=== PATIENT | male | born 1965 | race Caucasian/White ===

== ENCOUNTER 2023-04-14 07:32 | Outpatient (OUT) | payer OTHER, SELFPAY ==
[2023-04-14 08:13] LABS: Alanine Aminotransferase 35 U/L (16-63); Albumin Level 3.8 g/dL (3.4-5.0); Alkaline Phosphatase 55 U/L (46-116); Anion Gap 12.6; Aspartate Amino Transferase 22 U/L (15-37); BUN Creatinine Ratio 18.6; Bilirubin Total 0.5 mg/dL (0.2-1.0); Calcium 8.4 mg/dL (8.5-10.1); Carbon Dioxide 26.6 mmol/L (21.0-32.0); Chloride 102 mmol/L (98-107); Chol HDL Ratio 3.7; Cholesterol 221 mg/dL (<=200); Estimated GFR (African America >60 (>=60); Estimated GFR (Non-African Ame >60 (>=60); Globulin 3.7 g/dL; Glucose 105 mg/dL (74-106); HDL Cholesterol 59 mg/dL (40-60); Potassium 4.2 mmol/L (3.5-5.1); Sodium 137 mmol/L (136-145); Total Protein 7.5 g/dL (6.4-8.2); Triglycerides 83 mg/dL (<=150); VLDL CHOLESTEROL 16.6 mg/dL
== END 2023-04-14 07:33 | disposition home or self-care (01) ==
PROVIDERS: PCP Family Medicine; Visit Provider Family Medicine
DX: I12.9 Hypertensive chronic kidney disease with stage 1 through stage 4 chronic kidney disease, or unspecified chronic kidney disease (principal); Z13.220 Encounter for screening for lipoid disorders; R73.03 Prediabetes
CPT/HCPCS: 36415; 80053; 80061

== ENCOUNTER 2025-03-26 06:47 | Emergency (ER) | payer OTHER, SELFPAY ==
--- OUTSIDE RECORDS SUMMARY | 2024-06-12 09:57 | XMS_ITS ---
Author Name Auto Generated Organization OHIP Care Team Providers Care Qa Tester Name Role Phone ORIANA TEIXEIRA Attending Unavailable PROBLEMS No Problem Records Found PROCEDURES No Procedure Records Found RESULTS LIPID PANEL, STANDARD Collected: 2023 10:43 AM Status: F Source: [employer] DIAGNOSTICS Order Comment: FASTING:UNKNO WN FASTING: UNKNOWN TYPE CODE TESTS RESULT OUT OF RANGE REFERENCE UNITS LAB [id number] CHOLESTEROL, TOTAL 216 High <200 mg/dL LAB [id number] HDL CHOLESTEROL 56 Normal > OR = 40 mg/dL LAB [id number] TRIGLYCERIDES 105 Normal <150 mg/dL LAB [id number] LDL-CHOLESTEROL 138 High mg/dL (calc) Result Comment: Reference ra nge: <100 Desirable range <100 mg/dL for primary prevention; <70 mg/dL for patients with CHD or diabetic patients with > or = 2 CHD risk factors. LDL-C is now calculated using the Kenny-Fallon calculation, which is a validated novel method providing better accuracy than the Friedewald equation in the estimation of LDL-C. Kenny GAY et al. JUD. 2013;310(19): 1697-6873 (http://education.Filtr8.com/faq/RND451) LAB [id number] CHOL/HDLC RATIO 3.9 Normal <5.0 (calc) LAB [id number] NON HDL CHOLESTEROL 160 High <130 mg/dL (calc) Result Comment: For patients with diabetes plus 1 major ASCVD risk factor, treating to a non-HDL-C goal of <100 mg/dL (LDL-C of <70 mg/dL) is considered a therapeutic option. Performed By: #### [id number], [id number] #### [facility] [address], [address] [place] [address] Ticket Speculator: Gopal Tolbert MD COMPREHENSIVE METABOLIC PANEL Collected : 06/10/2024 10:43 AM Status: F Source: [employer] DIAGNOSTICS TYPE CODE TESTS RESULT OUT OF RANGE REFERENCE UNITS LAB [id number] GLUCOSE 99 Normal 65-99 mg/dL Result Comment: Fasting reference interval LAB [id number] UREA NITROGEN (BUN) 16 Normal 7-25 mg/dL LAB [id number] CREATININE 1.13 Normal 0.70-1.30 mg/dL LAB [id number] EGFR 76 Normal > OR = 60 mL/min/1 .73m2 LAB [id number] BUN/CREATININE RATIO SEE NOTE: 6- (calc) Result Comment: Not Reported : BUN and Creatinine are within reference range. LAB [id number] SODIUM 140 Normal 135-146 mmol/L LAB [id number] POTASSIUM 4.0 Normal 3.5-5.3 mmol/L LAB [id number] CHLORIDE 104 Normal 98-110 mmol/L LAB [id number] CARBON DIOXIDE 28 Normal 20-32 mmol/L LAB [id number] CALCIUM 8.7 Normal 8.6-10.3 mg/dL LAB [id number] PROTEIN, TOTAL 6.8 Normal 6.1-8.1 g/dL LAB [id number] ALBUMIN 4.4 Normal 3.6-5.1 g/dL LAB [id number] GLOBULIN 2.4 Normal 1.9-3.7 g/dL (calc) LAB [id number] ALBUMIN/GLOBUL IN RATIO 1.8 Normal 1.0-2.5 (calc) LAB [id number] BILIRUBIN, TOTAL 0.6 Normal 0.2-1.2 mg/dL LAB [id number] ALKALINE PHOSPHATASE 55 Normal 35-144 U/L LAB [id number] AST 21 Normal 10-35 U/L LAB [id number] ALT 19 Normal 9-46 U/L Performed By: #### [id number], 76 00 #### [facility] [address] [facility], [address] [place] [address] Ticket Speculator: Gopal Tolbert MD ALLERGIES No Allergies Records Found ENCOUNTERS ADMIT/DISCHARGE ACCOUNT NUMBER ADMITTING ENCOUNTER CLASS LOCATION SOURCE 06/12/2024/ 4 [id number] Ambulatory Building:[facility] [id number] EPIC PAYERS ENCOUNTER GUARANTOR PAYER SUBSCRIBER SOURCE 06/12/2024 KELSEY LAKHANI: [id number] [place] [address]Vub: (HP) (WP) Primary Insurance:[facility] Number: [id number] Date:2020 KELSEY LAKHANI: [id number] [place] [address] [facility] EPIC
[2025-03-26 06:52] VITALS: BP 148/100; PULSE 70; TEMP 36.8; O2SAT 97; BMI 32.6
--- OUTSIDE RECORDS SUMMARY | 2025-03-26 06:54 | XMS_ITS | Encounter Summary ---
Author Organization [facility] Address [address] [place] [address] Care Team Providers Care Product Support Representative Name Role Phone Pepito Dominguez MD Primary Care Provider Reason for Visit * Reason Comments Med Refill Encounter Details Date Type Department Care Team ([facility] Contact Info) Description 03/13/2025 Refill [facility] [place] [address] Family Medicine [address] [address] Pepito Dominguez MD 112 [facility] 100 [place] [address] (Fax) Essential hypertension Social History Tobacco Use Types Packs/Day Years Used Date Smoking Tobacco: Never Smokeless Tobacco: Never Alcohol Use Standard Drinks/Week Comments Not Currently 0 (1 standard drink = 0.6 oz pure alcohol) Caffeine intake: 3-4 cups per day Education Answer Date Recorded What is the highest level of school you have completed or the highest degree you have received? 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
--- OUTSIDE RECORDS SUMMARY | 2025-03-26 06:54 | XMS_ITS | Clinical Summary ---
Author Organization [facility] Healthcare Address [address] [place] [address] Care Team Providers Care Explosive Ordnance Specialist Name Role Phone Pepito Dominguez MD Primary Care Provider Allergies No known active allergies Medications losartan (Cozaar) 100 MG tabletIndications :Essential hypertension Take 1 tablet (100 mg) by mouth Daily 30 tablet 5 Active levETIRAcetam (Keppra) 500 MG tabletIndications :Tonic clonic epilepsy (HCC) Take 1 tablet (500 mg) by mouth in the morning and 1 tablet (500 mg) before bedtime. 60 tablet 5 Active Descovy 200-25 MG tablet Take 1 tablet by mouth Daily 5 Active Active Problems Problem Noted Date Diagnosed Date Stage 2 chronic kidney disease 06/12/2024 Non morbid obesity due to excess calories 2022 Benign prostatic hyperplasia without lower urinary tract symptoms 01/31/2023 Erectile dysfunction 01/31/2023 Essential hypertension 01/31/2023 Generalized anxiety disorder 01/31/2023 Heart murmur 01/31/2023 Hormone imbalance 01/31/2023 Hypertensive nephropathy 01/31/2023 Low testosterone level in male 01/31/2023 Microalbuminuria 01/31/2023 Osteoarthritis of right knee 01/31/2023 Pre-diabetes 01/31/2023 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 Resolved Problems Problem Noted Date Diagnosed Date Resolved Date Overweight (BMI 25.0-29.9) 01/31/2023 1 07/22/2022 Morbid obesity 10/09/2018 12/07/2023 Encounters Date Type Department Care Team Description 03/13/2025 Refill [facility] [address] [place] [address] Pepito Dominguez MD Essential hypertension 02/13/2025 Telephone [facility] [address] [place] [address] Pepito Dominguez MD 02/04/2025 Telephone [facility] [address] [place] [address] Alberta Mendoza, FRAN Care Coordination from Last 3 Months Immunizations Immunization Administration Dates Next Due Influenza, High Dose Seasona l, Preservative Free 04/17/2017 Influenza, injectable, MDCK, preservative free, quadrivalent 04/12/2022 Influenza, injectable, quadr ivalent, preservative free 06/10/2023,03/26/2021,06/13/2018,2016,04/19/2016,03/16/2015 Influenza, seasonal, injectable 05/12/2024 Moderna Bivalent Booster Vaccination 04/12/2022 Moderna SARS-CoV-2 Booster Vaccination 05/12/2024 Pfizer Purple Cap SARS-CoV-2 Vaccination 09/29/2020,09/07/2020 Zoster, Recombinant 06/15/2021,04/03/2021 Family History Medical History Relation Name Comments Cancer Father Cancer Mother Hypertension Mother Autism Son 1 son Relation Name Status Comments Brother 1 brother Daughter Alive 2 daughters Father Alive Mother Alive Sister 2 sisters Son Alive 2 sons Social History Tobacco Use Types Packs/Day Years Used Date Smoking Tobacco: Never Smokeless Tobacco: Never Tobacco Cessation:Counseling Given: Yes Alcohol Use Standard Drinks/Week Comments Not Currently [...] Industry Job Start Date Job End Date 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, 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 [employer] Not on file Not on file Not on f ile Last Filed Vital Signs Vital Sign Reading Time Taken Comments Blood Pressure 124/78 12/19/2023 10:07 AM EDT Pulse 76 12/19/2023 10:07 AM EDT Temperature - - Respiratory Rate - - Oxygen Saturation 97% 12/19/2023 10:07 AM EDT Inhaled Oxygen Concentration - - Weight 102 kg (225 lb) 12/19/2023 10:07 AM EDT Height 175.3 cm (5' 9 ) 12/19/2023 10:07 AM EDT Body Mass Index 33.23 12/19/2023 10:07 AM EDT Plan of Treatment Health Maintenance Due Date Last Done Comments CT Colonography 1966 FIT-DNA 1966 FIT 1966 FOBT 1965 Sigmoidoscopy 1966 Influenza Vaccine (#1) 2025 4, 06/10/2023, 04/12/2022, Additional history exists Colonoscopy 12/14/2028 12/14/2018 Colorectal Cancer Screening 12/14/2028 Procedures Procedure Name Priority Date/Time Associated Diagnosis Comments COLONOSCOPY Routine 12/14/2018 12:00 PM EDT Morbid (severe) obesity due to excess calories ([facility]) Encounter for screening for malignant neoplasm of colon Other specified counseling Encounter for general adult medical examination without abnormal findings from Last 3 Months or Most Recently Relevant to Health Maintenance Results * Colonoscopy (12/14/2018 12:00 PM EDT) Anatomical Region Laterality Modality Endoscopy 12/14/2018 12:0 0 PM EDT Narrative 12/14/2018 12:00 PM EDT PERFORMED AT [facility] LOCATION:[id number] Unremarkable save for diverticulosis coli more pronounced in the left colon than the right. Procedure Note CONVERSION, GENERIC - 11/09/2022 PERFORMED AT [facility] LOCATION:[id number] Unremarkable save for diverticulosis coli more pronounced in the leftcolon than the right. Pepito Dominguez MD ENDOSCOPY PROCEDURE ORDERABL ES Final Result from Last 3 Months or Most Recently Relevant to Health Maintenance Insurance [facility] Care Teams Explosive Ordnance Specialist Relationship Specialty Start Date End Date Pepito Dominguez MD [address] [address] PCP - General Family Medicine 11/01/22
--- NOTE | 2025-03-26 07:02 | XR_ITS ---
The [address] [address] Patient Name: KELSEY STRAUSS MRN: [id number] date: 1965 Sex: M Assigned Patient Location: ER Current Patient Location: ER Accession/Order Number: [id number] Exam Date: 03/26/2025 07:10 Report Date: 03/26/2025 08:07 At the request of: NICHOL MICHEL MD Procedure: XR elbow RT 2V CLINICAL HISTORY: fell and pain just a couple inches above elbow RIGHT SHOULDER - 2 views COMPARISON: None AP and Y views were obtained. There is no evidence of fracture or dislocation. There is minimal degenerative change at the acromioclavicular joint. There are no significant soft tissue abnormalities. XR/XR humerus RT IMPRESSION: NO ACUTE BONY INJURY. RIGHT HUMERUS - 2 views COMPARISON: None AP and transthoracic views were obtained. There is a comminuted fracture at the distal humeral shaft. There is slight apex lateral angulation. The butterfly fragment shows slight medial displacement. There is no additional fracture or dislocation. There are no significant soft tissue abnormalities. IMPRESSION: DISTAL HUMERUS FRACTURE RIGHT ELBOW - 2 views COMPARISON: None Attempted AP and lateral views were obtained. The above described fracture of the distal humerus is again seen. This extends to the metadiaphysis above the medial humeral condyle. The fracture is comminuted with a displaced butterfly fragment. There is also some apex anterior lateral angulation. There is no fracture or dislocation at the elbow. There is no elbow effusion. IMPRESSION: DISTAL HUMERUS FRACTURE. Impression dictated by: Linette Barnes M.D. 03/26/2025 8:07 AM Dictation Location: [place] [address] Electronically authenticated by: [id number] Y Date: 03/26/2025 08:07
[2025-03-26 07:04] VITALS: PULSE 70
--- NOTE | 2025-03-26 07:05 | XR_ITS ---
The [address] [address] Patient Name: KELSEY STRAUSS MRN: [id number] date: 1965 Sex: M Assigned Patient Location: ER Current Patient Location: ER Accession/Order Number: [id number] Exam Date: 03/26/2025 07:10 Report Date: 03/26/2025 08:07 At the request of: NICHOL MICHEL MD Procedure: XR elbow RT 2V CLINICAL HISTORY: fell and pain just a couple inches above elbow RIGHT SHOULDER - 2 views COMPARISON: None AP and Y views were obtained. There is no evidence of fracture or dislocation. There is minimal degenerative change at the acromioclavicular joint. There are no significant soft tissue abnormalities. XR/XR shoulder RT min 2V IMPRESSION: NO ACUTE BONY INJURY. RIGHT HUMERUS - 2 views COMPARISON: None AP and transthoracic views were obtained. There is a comminuted fracture at the distal humeral shaft. There is slight apex lateral angulation. The butterfly fragment shows slight medial displacement. There is no additional fracture or dislocation. There are no significant soft tissue abnormalities. IMPRESSION: DISTAL HUMERUS FRACTURE RIGHT ELBOW - 2 views COMPARISON: None Attempted AP and lateral views were obtained. The above described fracture of the distal humerus is again seen. This extends to the metadiaphysis above the medial humeral condyle. The fracture is comminuted with a displaced butterfly fragment. There is also some apex anterior lateral angulation. There is no fracture or dislocation at the elbow. There is no elbow effusion. IMPRESSION: DISTAL HUMERUS FRACTURE. Impression dictated by: Linette Barnes M.D. 03/26/2025 8:07 AM Dictation Location: [place] [address] Electronically authenticated by: [id number] Y Date: 03/26/2025 08:07
--- NOTE | 2025-03-26 07:05 | XR_ITS ---
The [address] [address] Patient Name: KELSEY STRAUSS MRN: [id number] date: 1965 Sex: M Assigned Patient Location: ER Current Patient Location: ER Accession/Order Number: [id number] Exam Date: 03/26/2025 07:10 Report Date: 03/26/2025 08:07 At the request of: NICHOL MICHEL MD Procedure: XR elbow RT 2V CLINICAL HISTORY: fell and pain just a couple inches above elbow RIGHT SHOULDER - 2 views COMPARISON: None AP and Y views were obtained. There is no evidence of fracture or dislocation. There is minimal degenerative change at the acromioclavicular joint. There are no significant soft tissue abnormalities. XR/XR elbow RT 2V IMPRESSION: NO ACUTE BONY INJURY. RIGHT HUMERUS - 2 views COMPARISON: None AP and transthoracic views were obtained. There is a comminuted fracture at the distal humeral shaft. There is slight apex lateral angulation. The butterfly fragment shows slight medial displacement. There is no additional fracture or dislocation. There are no significant soft tissue abnormalities. IMPRESSION: DISTAL HUMERUS FRACTURE RIGHT ELBOW - 2 views COMPARISON: None Attempted AP and lateral views were obtained. The above described fracture of the distal humerus is again seen. This extends to the metadiaphysis above the medial humeral condyle. The fracture is comminuted with a displaced butterfly fragment. There is also some apex anterior lateral angulation. There is no fracture or dislocation at the elbow. There is no elbow effusion. IMPRESSION: DISTAL HUMERUS FRACTURE. Impression dictated by: Linette Barnes M.D. 03/26/2025 8:07 AM Dictation Location: [place] [address] Electronically authenticated by: [id number] Y Date: 03/26/2025 08:07
[2025-03-26] MEDS: OXYCODONE HCL/ACETAMINOPHEN 5MG/325MG 1 TAB PO (07:12)
[2025-03-26] MEDS: KETOROLAC TROMETHAMINE 60 MG/2 ML VIAL IM (07:13)
[2025-03-26] MEDS: MORPHINE SULFATE 2 MG/ML SYRINGE IV (08:10)
--- NOTE | 2025-03-26 08:30 | XR_ITS ---
The [address] [address] Patient Name: KELSEY STRAUSS MRN: [id number] date: 1965 Sex: M Assigned Patient Location: ER Current Patient Location: ED.MAIN Accession/Order Number: [id number] Exam Date: 03/26/2025 08:53 Report Date: 03/26/2025 09:16 At the request of: NICHOL MICHEL MD Procedure: XR humerus RT RIGHT HUMERUS - 2 views CLINICAL HISTORY: Follow-up humerus fracture after splint placement COMPARISON: 03/26/2025 Attempted AP and lateral views were obtained. There is redemonstration of a comminuted fracture at the distal humeral shaft extending to the metadiaphysis. There is still displacement of the fracture fragments as well as slight angulation. No dislocation is noted. XR/XR humerus RT IMPRESSION: COMMINUTED, DISPLACED FRACTURE AT THE DISTAL HUMERUS, NOT SIGNIFICANTLY CHANGED FROM THE PRIOR WHEN ALLOWING FOR DIFFERENCES IN POSITIONING. Impression dictated by: Linette Barnes M.D. 03/26/2025 9:16 AM Dictation Location: [place] [address] Electronically authenticated by: [id number] Y Date: 03/26/2025 09:16
--- NOTE | 2025-03-26 08:36 | PC.NURSE ---
assisted Dr Baker with splinting pt's arm at this time
--- NOTE | 2025-03-26 10:50 | ED.GENADUL1 ---
HPI HPI - General Adult General Chief complaint: Extremity Injury, Upper Stated complaint: FALL/UPPER RIGHT EXTREMITY Time Seen by Provider: 03/26/25 07:05 Mode of arrival: walk-in History of Present Illness HPI narrative: The patient came to the ER after he had a fall just before arrival and hit his right arm, the patient is coming to the ER with a severe pain in the right arm not radiating. No numbness or tingling in the hand Related Data Home Medications ?Medication ?Instructions ?Recorded ?Confirmed emtricitabine 200 mg-tenofovir 1 tab PO DAILY 03/26/25 03/26/25 alafenamide fumarate 25 mg tablet (Descovy) levetiracetam 500 mg tablet 500 mg PO Q12H 03/26/25 03/26/25 losartan 100 mg tablet 100 mg PO DAILY 03/26/25 03/26/25 Previous Rx's ?Medication ?Instructions ?Recorded oxycodone-acetaminophen 5 mg-325 1 tab PO Q6H PRN pain 3 days #12 03/26/25 mg tablet (Percocet) tabs Allergies Allergy/AdvReac Type Severity Reaction Status Date / Time No Known Drug Allergies Allergy Verified 03/26/25 06:52 Opioid HPI Opioid Management Most Recent Opioid Data: Last Pain Scale 6 Today, 07:04 Last ED Pain Assessment Today, 07:04 Review of Systems ROS Status of ROS 10 or more systems reviewed and unremarkable except as noted in history and below [facility] Medical History (Updated 03/26/25 @ 09:14 by Peggy Baker MD) Hypertension ?I10 - Essential (primary) hypertension (ICD-10) Hypertension ?I10 - Essential (primary) hypertension (ICD-10) Social History Little interest or pleasure in doing things: not at all Feeling down, depressed, or hopeless: not at all Exam Narrative Exam Narrative: Nurses notes and vital signs reviewed and patient is not hypoxic. General: Well-appearing and in no apparent distress. Skin: Warm, dry, no pallor noted. No rash. Head: Normocephalic, atraumatic. Right upper extremity; no obvious deformity on examination but the patient have swelling in the distal one third of the arm just above the elbow and the patient had a good radial pulse no numbness tingling in the hand no vascular injury detected Neurological: A&O x4. No cranial nerve dysfunction observed. No truncal ataxia. Moves all extremities. Sensation intact. Psychiatric: Cooperative and interactive. Normal mood and affect. Constitutional Vital Signs, click to edit/add: Last Vital Signs Temp 98.2 F 03/26/25 06:52 Pulse 70 03/26/25 07:04 Resp 24 H 03/26/25 06:52 BP 148/100 H 03/26/25 06:52 Pulse Ox 97 03/26/25 06:52 O2 Del Method Room Air 03/26/25 06:52 Course Vital Signs Vital signs: Vital Signs Temperature 98.2 F 03/26/25 06:52 Pulse Rate 70 03/26/25 06:52 Respiratory Rate 24 H 03/26/25 06:52 Blood Pressure 148/100 H 03/26/25 06:52 Pulse Oximetry 97 03/26/25 06:52 Oxygen Delivery Method Room Air 03/26/25 06:52 Temperature 98.2 F 03/26/25 06:52 Pulse Rate 70 03/26/25 07:04 Respiratory Rate 24 H 03/26/25 06:52 Blood Pressure 148/100 H 03/26/25 06:52 Pulse Oximetry 97 03/26/25 06:52 Oxygen Delivery Method Room Air 03/26/25 06:52 Medical Decision Making MDM Narrative Medical decision making narrative: Upon arrival the patient was provided with Toradol and Percocet X-ray of the right humerus shoulder as well as forearm showed that the patient had commuted fracture at the distal shaft of the humerus The patient case was discussed with and the plan to take him for surgery tomorrow morning the patient supposed to be n.p.o. after midnight Patient was a placed in a posterior long splint Provided with morphine initially for pain control in the ER discharged home with Percocet Patient instructed about monitoring his fingers for any numbness tingling he is to come back to the ER also loosen the Yosvany wrap on his splint Patient also provided with a sling Patient provided with information for Dr. Pitts as well in case needed The patient to come back to the ER in case of worsening of the pain or any numbness tingling in the fingers or any discoloration of the fingers as well Discharge Plan Discharge Chief Complaint: Extremity Injury, Upper Clinical Impression: Fracture, humerus closed Patient Disposition: Home, Self-Care Time of Disposition Decision: 09:14 Condition: Good Mode of Transportation: Private Vehicle Prescriptions / Home Meds: New oxycodone-acetaminophen [Percocet] 5-325 mg tablet 1 tab PO Q6H PRN (Reason: pain) 3 Days Qty: 12 0RF No Action Descovy 200-25 mg tablet 1 tab PO DAILY levetiracetam 500 mg tablet 500 mg PO Q12H losartan 100 mg tablet 100 mg PO DAILY Print Language: Kazakh Instructions: Arm Fracture in Adults (DC) Referrals: ORIANA TEIXEIRA [Primary Care Provider, Family Practice] - 1 week Oleg Velez DO [Physician, Orthopedics] - As soon as possible Referral Note: Dr Velez office will call you but if did not call you by noon please call and make sure that you get more information, and do not eat after midnight in preparation for possible surgery Discharge Date/Time: 03/26/25 09:34
== END 2025-03-26 09:34 | disposition home or self-care (01) ==
PROVIDERS: Emergency Provider Emergency Medicine; PCP Family Medicine
DX: S42.401A Unspecified fracture of lower end of right humerus, initial encounter for closed fracture (principal); W01.0XXA Fall on same level from slipping, tripping and stumbling without subsequent striking against object, initial encounter
CPT/HCPCS: 29105; 73030; 73060; 73070; 96372; 96374; 99284; J1885; J2270

== ENCOUNTER 2025-04-14 08:03 | Outpatient (OUT) | payer OTHER, SELFPAY ==
--- NOTE | 2025-04-14 | XR_ITS ---
The [address] [address] Patient Name: KELSEY STRAUSS MRN: [id number] date: 1965 Sex: M Assigned Patient Location: RAD Current Patient Location: [facility] Accession/Order Number: [id number] Exam Date: 04/14/2025 10:18 Report Date: 04/14/2025 12:56 At the request of: NATASHA PACHECO DO Procedure: XR humerus RT RIGHT HUMERUS - 2 views CLINICAL HISTORY: Follow-up humerus fracture, S42.391D COMPARISON: 03/26/2025 AP and lateral views were obtained. There is a new plate and multiple screws that extends from the proximal humeral shaft down to the lateral humeral condyle posteriorly. There is redemonstration of a comminuted distal humeral shaft fracture. There is improvement of position and alignment of the fracture fragments since the preoperative exam. No dislocation is seen. Skin massiel are visualized. XR/XR humerus RT IMPRESSION: INTERVAL INTERNAL FIXATION OF DISTAL HUMERUS FRACTURE WITH IMPROVED ALIGNMENT Impression dictated by: Linette Barnes M.D. 04/14/2025 12:56 PM Dictation Location: [place] [address] Electronically authenticated by: [id number] Y Date: 04/14/2025 12:56
--- OUTSIDE RECORDS SUMMARY | 2025-04-14 08:06 | XMS_ITS | CCD ---
Author Organization [facility] Care Team Providers Care Linux Devops Engineer Name Role Phone DEVI CARTER Admitting Unavailable DEVI CARTER Attending Unavailable DEVI CARTER Consulting Unavailable TAMMY KING Consulting Unavailable Pepito Teixeira MD Primary Care Provider [phone] PEPITO TEIXEIRA Attending Unavailable PEPITO TEIXEIRA Attending Unavailable PEPITO TEIXEIRA Attending Unavailable PEPITO TEIXEIRA Attending Unavailable Oleg Velez DO Attending Provider Oleg Velez DO Other Provider Pepito Teixeira MD Primary Care Provider Oleg Velez Attending Unavailable Oleg Velez Admitting Unavailable Pepito Teixeira Primary Care Unavailable Medications Current Medications Medication Drug Class(es) Dates Sig (Normalized) Sig (Original) emtricitabine 200 mg / tenofovir alafenamide 25 mg oral tablet (1 source) Human Immunodeficiency Virus Nucleoside Analog Reverse Transcriptase Inhibitor Start: 03-27-2025 take 1 tablet by mouth once daily Emtricitabine-Teno fovir Alafen (Descovy) 200-25 mg tablet Active 1 TAB PO Daily March 27, 2025 12:00am Complies with drug therapy levETIRAcetam 500 mg oral tablet (8 sources) Start: 12-01-2023 End: 12-09-2024 take 1 tablet by mouth in the morning levETIRAcetam (Keppra) 500 MG tablet Indications: Tonic clonic epilepsy (CMS/HCC) Take 1 tablet (500 mg) by mouth in the morning and 1 tablet (500 mg) before bedtime. 180 tablet 1 06/12/2024 12/09/2024 Active losartan potassium 100 mg oral tablet (8 sources) Angiotensin 2 Receptor Emy Start: 12-01-2023 End: 12-09-2024 take 1 tablet by mouth once daily losartan (Cozaar) 100 MG tablet Indications: Essential hypertension (CMS/HCC) Take 1 tablet (100 mg) by mouth Daily 90 tablet 1 06/12/2024 12/09/2024 Active nabumetone 750 mg oral tablet (2 sources) Nonsteroidal Anti-inflammatory Drug Start: 12-01-2023 take 1 tablet by mouth twice daily as needed for pain Nabumetone 750 mg tablet Active 750 MG PO Twice daily as needed for pain December 01, 2023 12:00am Complies with drug therapy oxyCODONE hydrochloride 5 mg oral tablet (1 source) Opioid Agonist Start: 03-27-2025 take 1 tablet by mouth every six hours as needed for pain Oxycodone 5 mg tablet Active 5 MG PO Q6H as needed for pain 12 01March 27, 2025 Complies with drug therapy tadalafil 5 mg oral tablet (1 source) Phosphodiesterase 5 Inhibitor Start: 03-27-2025 take 1 tablet by mouth once daily Tadalafil (Cialis) 5 mg tablet Active 5 MG PO Daily March 27, 2025 12:00am Complies with drug therapy Problems Active Problems Problem Classification Problem Date Documented Date Episodic/Chronic Anxiety disorders (5 sources) Generalized anxiety disorder; Translations: [Generalized anxiety disorder] Onset: 12-21-2018 01-31-2023 Chronic Chronic kidney disease (4 sources) Chronic kidney disease stage 2; Translations: [Chronic kidney disease, stage 2 (mild)] Onset: 06-12-2024 06-12-2024 Chronic Diabetes mellitus without complication (1 source) Prediabetes; Translations: [PREDIABETES] Onset: 12-21-2018 Diverticulosis and diverticulitis (1 source) Diverticulosis of large intestine without perforation or abscess without bleeding; Translations: [DVRTCLOS LG INT NO PERF/ABSC W/O BL] Onset: 12-21-2018 Chronic Epilepsy; convulsions (8 sources) Epilepsy, unspecified, not intractable, without status epilepticus; Translations: [Epilepsy] Onset: 12-21-2018 06-06-2024 Chronic Essential hypertension (8 sources) Essential (primary) hypertension; Translations: [Essential hypertension] Onset: 12-21-2018 06-06-2024 Chronic Fracture of upper limb (3 sources) Closed fracture of shaft of humerus; Translations: [Unspecified fracture of shaft of humerus, unspecified arm, initial encounter for closed fracture] Onset: 03-27-2025 03-27-2025 Episodic Hyperplasia of prostate (4 sources) Benign prostatic hyperplasia; Translations: [Benign prostatic hyperplasia without lower urinary tract symptoms] Onset: 01-31-2023 01-31-2023 Chronic Hypertension with complications and secondary hypertension (6 sources) Hypertensive renal disease; Translations: [Hypertensive chronic kidney disease with stage 1 through stage 4 chronic kidney disease, or unspecified chronic kidney disease] Onset: 01-31-2023 01-31-2023 Chronic Osteoarthritis (4 sources) Osteoarthritis of right knee joint; Translations: [Unilateral primary osteoarthritis, right knee] Onset: 01-31-2023 01-31-2023 Chronic Other and unspecified benign neoplasm (1 source) Benign neoplasm of rectum; Translations: [BENIGN NEOPLASM OF RECTUM] Onset: 12-21-2018 Episodic Other male genital disorders (4 sources) Male erectile dysfunction, unspecified; Translations: [Impotence of organic origin] Onset: 01-31-2023 01-31-2023 Chronic Other nutritional; endocrine; and metabolic disorders (1 source) Body mass index (BMI) 34.0-34.9, adult; Translations: [BODY MASS INDEX BMI 34.0-34.9 ADULT] Onset: 12-21-2018 Chronic Other nutritional; endocrine; and metabolic disorders (1 source) Morbid (severe) obesity due to excess calories; Translations: [MORBID SEVERE OBES D/T EXCESS KUN] Onset: 12-21-2018 Chronic Other nutritional; endocrine; and metabolic disorders (4 sources) Obesity caused by energy imbalance; Translations: [Other obesity due to excess calories] Onset: 02-08-2023 02-08-2023 Chronic Other upper respiratory disease (2 sources) Congestion of nasal sinus; Translations: [Nasal congestion] 12-01-2023 Episodic Other upper respiratory disease (1 source) Nasal congestion; Translations: [Other disease of nasal cavity and sinuses] 12-01-2023 Episodic Past or Other Problems Problem Classification Problem Date Documented Da te Episodic/Chronic Diabetes mellitus without complication (4 sources) Prediabetes; Translations: [Prediabetes] Onset: 01-31-2023 01-31-2023 Episodic Genitourinary symptoms and ill-defined conditions (4 sources) Microalbuminuria; Translations: [Proteinuria, unspecified] Onset: 01-31-2023 01-31-2023 Episodic Heart valve disorders (4 sources) Heart murmur; Translations: [Cardiac murmur, unspecified] Onset: 01-31-2023 01-31-2023 Episodic Other endocrine disorders (4 sources) Disorder of endocrine system; Translations: [Endocrine disorder, unspecified] Onset: 01-31-2023 01-31-2023 Episodic Other nutritional; endocrine; and metabolic disorders (4 sources) Morbid obesity; Translations: [Morbid (severe) obesity due to excess calories] Onset: 10-09-2018 Resolved: 12-07-2023 12-07-2023 Chronic Other nutritional; endocrine; and metabolic disorders (4 sources) Body mass index 25-29 - overweight; Translations: [Overweight] Onset: 01-31-2023 Resolved: 05-22-2023 05-22-2023 Episodic Other screening for suspected conditions (not mental disorders or infectious disease) (8 sources) Encounter for screening for malignant neoplasm of colon; Translations: [Decreased testosterone level ] Onset: 12-14-2018 01-31-2023 Episodic Results Test Name Value Interpretation Reference Range Facil ity XR humerus RT*on 03-29-2025 XR humerus RT* [facility] [place] [address] XRay Report Signed Patient: Jesus Riojas MR#: [id number] : 1965 Acct:[id number] Age/Sex: 59 / M ADM Date: 03/27/25 Loc: [place] Room: Type: [facility] Attending Dr: Oleg Velez DO Copies to: Oleg Velez DO Ordering Provider: Oleg Velez DO Date of Service: 03/27/25 XR/XR humerus RT*: . Intraoperative study. Reason for exam: ORIF distal right humerus Findings: 5 images were obtained intraoperatively. Hardware is seen. Cumulative Air Kerma in mGy: 1 7 mGy XR/XR humerus RT* Impression: Intraoperative study. Impression dictated by: Murali Dawson Jr., D.O. 03/29/2025 11:09 AM Dictation Location: [facility]18 Transcribed By: [facility] 03/29/251108 Dictated By: Murali Dawson Jr, DO 03/29/251107 Signed By: 03/29/25 110 Normal [facility] Basic Metabolic Panelon 10-0 Anion gap [Moles/Vol] 10.3 mmol/L Normal 6.0-15.0 [facility] Comment on above: Performed By: #### B MP #### [place] [address] [place] Calcium [Mass/Vol] 8.6 mg/dL Normal 8.6-10.3 [facility] Comment on above: Performed By: #### B MP #### [address] Chloride [Moles/Vol] 106 mmol/L Normal 98-107 [facility] Comment on above: Performed By: #### B MP #### [address] CO2 [Moles/Vol] 24.6 mmol/L Normal 21.0-31.0 [facility] Comment on above: Performed By: #### B MP #### [address] Creatinine [Mass/Vol] 1.13 mg/dL Normal 0.70-1.30 [facility] Comment on above: Performed By: #### B MP #### [place] [address] [place] Creatinine Clr Calc Pharmacy 83.35 Normal [facility] Comment on above: Result Comment: PERF ORMED BY: [place] [address] PATHOLOGIST HEEL MOLDER CEFERINO LAROSE M.D. Performed By: #### B MP #### [place] [address] [place] GFR/1.73 sq M.predicted MDRD (S/P/Bld) [Vol rate/Area] mL/min/{1.73_m2} Normal [facility] Comment on above: Performed By: #### B MP #### [address] Glucose [Mass/Vol] 116 mg/dL High 70-100 [facility] Comment on above: Result Comment: [place] Glucose Reference Range is dependent on time and content of last meal. Glucose of more than 200 mg/dL in a nonstressed, ambulatory subject supports the diagnosis of Diabetes Mellitus. ADA recommended reference range Performed By: #### B MP #### [address] Potassium [Moles/Vol] 3.9 mmol/L Normal 3.5-5.1 [facility] Comment on above: Performed By: #### B MP #### [address] Sodium [Moles/Vol] 137 mmol/L Normal 136-145 [facility] Comment on above: Performed By: #### B MP #### [address] Urea nitrogen [Mass/Vol] 16 mg/dL Normal 7-25 [facility] Comment on above: Performed By: #### B MP #### [address] Complete Blood Count Auto Di ffon 03-27-2025 Basophils (Bld) [#/Vol] 0.0 10*3/uL Normal 0.0-0.2 [facility] Comment on above: Result Comment: PERF ORMED BY: [place] [address] PATHOLOGIST HEEL MOLDER CEFERINO LAROSE M.D. Performed By: #### C BC #### [place] [address] [place] Basophils/100 WBC (Bld) 0.4 % Normal . [facility] Comment on above: Performed By: #### C BC #### [place] [address] [place] Eosinophils (Bld) [#/Vol] 0.1 10*3/uL Normal 0.0-0.45 [facility] Comment on above: Performed By: #### C BC #### [address] Eosinophils/100 WBC (Bld) 0.7 % Normal . [facility] Comment on above: Performed By: #### C BC #### [address] Erythrocyte distribution width (RBC) [Ratio] 12.8 % Normal 12.0-14.8 [facility] Comment on above: Performed By: #### C BC #### [address] Hematocrit (Bld) [Volume fraction] 43.1 % Normal 38.8-50.0 [facility] Comment on above: Performed By: #### C BC #### [address] Hemoglobin (Bld) [Mass/Vol] 14.9 g/dL Normal 13.0-17.0 [facility] Comment on above: Performed By: #### C BC #### [address] Lymphocytes (Bld) [#/Vol] 0.9 10*3/uL Low 1.00-4.8 [facility] Comment on above: Performed By: #### C BC #### [address] Lymphocytes/100 WBC (Bld) 11.7 % Normal . [facility] Comment on above: Performed By: #### C BC #### [address] MCH (RBC) [Entitic mass] 32.5 pg Normal 27.5-35.2 [facility] Comment on above: Performed By: #### C BC #### [address] MCV (RBC) [Entitic vol] 94.0 fL Normal 83.5-101 [facility] Comment on above: Performed By: #### C BC #### [address] Mean Corpuscular HGB Conc 34.6 g/dL Normal 32.5-35.6 [facility] Comment on above: Performed By: #### C BC #### [address] Monocytes (Bld) [#/Vol] 0.6 10*3/uL Normal 0.0-0.8 [facility] Comment on above: Performed By: #### C BC #### [address] Monocytes/100 WBC (Bld) 7.8 % Normal . [facility] Comment on above: Performed By: #### C BC #### [address] Neutrophils (Bld) [#/Vol] 6.4 10*3/uL Normal 1.8-7.7 [facility] Comment on above: Performed By: #### C BC #### [address] Neutrophils/100 WBC (Bld) 79.4 % Normal . [facility] Comment on above: Performed By: #### C BC #### [address] NRBC% 0.1 /100{WBC} Normal 0-0.5 [facility] Comment on above: Performed By: #### C BC #### [address] Platelet mean volume (Bld) [Entitic vol] 7.9 fL Normal 6.6-10.1 [facility] Comment on above: Performed By: #### C BC #### [place] [address] [place] Platelets (Bld) [#/Vol] 214 10*3/uL Normal 150-450 [facility] Comment on above: Performed By: #### C BC #### [place] [address] [place] RBC (Bld) [#/Vol] 4.58 10*6/uL Normal 3.90-5.60 [facility] Comment on above: Performed By: #### C BC #### [facility] [address] WBC (Bld) [#/Vol] 8.1 10*3/uL Normal 4.1-10.5 [facility] Comment on above: Performed By: #### C BC #### [facility] [address] White Blood Count 8.1 [CFU]/mL Normal 4.1-10.5 [facility] Comment on above: Performed By: #### C BC #### [address] ECG 12 lead ECGon 03-27-2025 ECG 12 lead ECG [facility] [place] [address] [place] [address] Electrocardiograph Report Signed Patient: Jesus Riojas MR#: [id number] 637 : 1965 Acct:[id number] Age/Sex: 59 / M ADM Date: 03/27/25 Loc: [place] Room: Type: [facility] Attending Dr: Oleg Velez DO Ordering Provider: Oleg Velez DO Date of Service: 03/27/2508/20/1020 ECG/ECG 12 lead ECG: ORIF RIGHT DISTAL HUMERUS Copies to: Test Reason : Blood Pressure : */* mmHG Vent. Rate : 85 BPM Atrial Rate : 85 BPM P-R Int : 222 ms QRS Dur : 90 ms QT Int : 364 ms P-R-T Axes : 43 -35 37 degrees QTcB Int : 433 ms Sinus rhythm with 1st degree AV block Left axis deviation Minimal voltage criteria for LVH, may be normal variant ( R in aVL ) Abnormal ECG No previous ECGs available Confirmed by Tye Arrieta ([id number]) on 03/28/2025 10:27:21 PM Referred By: Electronically Signed By: Tye Arrieta Transcribed By: MUS Signed By Tye Arrieta MD 03/28/252226 Normal [facility] COMPREHENSIVE METABOLIC PANE [facility] 06-11-2024 Albumin [Mass/Vol] 4.4 g/dL Normal 3.6-5.1 [facility] Comment on above: Performed By: #### 1 0231, 7600 #### [facility] of [address], [address] [place] [address] Account Executive Trainee: Gopal Tolbert MD Albumin/Globulin [Mass ratio] 1.8 {ratio} Normal 1.0-2.5 [facility] Comment on above: Performed By: #### 1 0231, 7600 #### [facility] of [address], [address] [place] [address] Account Executive Trainee: Gopal Tolbert MD ALP [Catalytic activity/Vol] 55 U/L Normal 35-144 [facility] Comment on above: Performed By: #### 1 023, 7600 #### [facility] of [address], [address] [place] [address] Account Executive Trainee: Gopal Tolbert MD ALT [Catalytic activity/Vol] 19 U/L Normal 9-46 [facility] Comment on above: Performed By: #### 1 023, 7600 #### [facility] of [place] [address] Account Executive Trainee: Gopal Tolbert MD AST [Catalytic activity/Vol] 21 U/L Normal 10-35 [facility] Comment on above: Performed By: #### 1 023, 7600 #### [facility] of [place] [address] Account Executive Trainee: Gopal Tolbert MD Bilirubin [Mass/Vol] 0.6 mg/dL Normal 0.2-1.2 [facility] Comment on above: Performed By: #### 1 0231, 7600 #### [facility] of [place] [address] Account Executive Trainee: Gopal Tolbert MD BUN/CREATININE RATIO SEE NOTE: Normal 6-22 [facility] Comment on above: Result Comment: Not Reported: BUN and Creatinine are within reference range. Performed By: #### 1 0231, 7600 #### [facility] of [place] [address] Account Executive Trainee: Gopal Tolbert MD Calcium [Mass/Vol] 8.7 mg/dL Normal 8.6-10.3 [facility] Comment on above: Performed By: #### 1 023, 7600 #### [facility] of [place] [address] Account Executive Trainee: Gopal Tolbert MD Chloride [Moles/Vol] 104 mmol/L Normal 98-110 [facility] Comment on above: Performed By: #### 1 023, 7600 #### [facility] of [place] [address] Account Executive Trainee: Gopal Tolbert MD CO2 [Moles/Vol] 28 mmol/L Normal 20-32 [facility] Comment on above: Performed By: #### 1 023, 7600 #### [facility] of [place] [address] Account Executive Trainee: Gopal Tolbert MD Creatinine [Mass/Vol] 1.13 mg/dL Normal 0.70-1.30 [facility] Comment on above: Performed By: #### 1 023, 7600 #### [facility] of [place] [address] Account Executive Trainee: Gopal Tolbert MD GFR/1.73 sq M.predicted among non-blacks MDRD (S/P/Bld) [Vol rate/Area] 76 mL/min/{1.73_m2} Normal > OR = 60 [facility] Comment on above: Performed By: #### 1 0231, 7600 #### [facility] of [place] [address] Account Executive Trainee: Gopal Tolbert MD Globulin (S) [Mass/Vol] 2.4 g/dL Normal 1.9-3.7 [facility] Comment on above: Performed By: #### 1 023, 7600 #### [facility] of [place] [address] [place] [address] Account Executive Trainee: Gopal Tolbert MD Glucose [Mass/Vol] 99 mg/dL Normal 65-99 [facility] Comment on above: Result Comment: Fasting reference interval Performed By: #### 1 0231, 7600 #### [facility] [place] [address] Account Executive Trainee: Gopal Tolbert MD Potassium [Moles/Vol] 4.0 mmol/L Normal 3.5-5.3 [facility] Comment on above: Performed By: #### 1 0231, 7600 #### [facility] [place] [address] Account Executive Trainee: Gopal Tolbert MD Protein [Mass/Vol] 6.8 g/dL Normal 6.1-8.1 [facility] Comment on above: Performed By: #### 1 0231, 7600 #### [facility] [place] [address] Account Executive Trainee: Gopal Tolbert MD Sodium [Moles/Vol] 140 mmol/L Normal 135-146 [facility] Comment on above: Performed By: #### 1 0231, 7600 #### [facility] [place] [address] Account Executive Trainee: Gopal Tolbert MD Urea nitrogen [Mass/Vol] 16 mg/dL Normal 7-25 [facility] Comment on above: Performed By: #### 1 0231, 7600 #### [facility] of [place] [address] Account Executive Trainee: Gopal Tolbert MD LIPID PANEL, [address] Cholesterol [Mass/Vol] 216 mg/dL High <200 [facility] Comment on above: Order Comment: FASTI NG:UNKNOWN FASTING: UNKNOWN Performed By: #### 1 0231, 7600 #### [facility] of [place] [address] Account Executive Trainee: Gopal Tolbert MD Cholesterol in HDL [Mass/Vol] 56 mg/dL Normal > OR = 40 [facility] Comment on above: Order Comment: FASTI NG:UNKNOWN FASTING: UNKNOWN Performed By: #### 1 0231, 7600 #### [facility] [address], [address] [place] [address] Account Executive Trainee: Gopal Tolbert MD Cholesterol in LDL [Mass/Vol] 138 mg/dL High [facility] Comment on above: Order Comment: FASTI NG:UNKNOWN FASTING: UNKNOWN Result Comment: Refe rence range: <100 Desirable range <100 mg/dL for primary prevention; <70 mg/dL for patients with CHD or diabetic patients with > or = 2 CHD risk factors. LDL-C is now calculated using the Esteban calculation, which is a validated novel method providing better accuracy than the Friedewald equation in the estimation of LDL-C. Kenny GAY et al. JUD. 2013;310(19): 1332-4378 (http://education.VetCompare.WineShop/faq/YGG346) Performed By: #### 1 023, 0 #### [facility] [address], [address] [place] [address] Account Executive Trainee: Gopal Tolbert MD Cholesterol.total/C holesterol in HDL [Mass ratio] 3.9 {ratio} Normal <5.0 [facility] Comment on above: Order Comment: FASTI NG:UNKNOWN FASTING: UNKNOWN Performed By: #### 1 023, 7600 #### [facility] [address], [address] [place] [address] Account Executive Trainee: Gopal Tolbert MD NON HDL CHOLESTEROL 160 mg/dL (calc) High <130 [facility] Comment on above: Order Comment: FASTI NG:UNKNOWN FASTING: UNKNOWN Result Comment: For patients with diabetes plus 1 major ASCVD risk factor, treating to a non-HDL-C goal of <100 mg/dL (LDL-C of <70 mg/dL) is considered a therapeutic option. Performed By: #### 1 0231, 7600 #### [facility] [address], [address] [place] [address] Account Executive Trainee: Gopal Tolbert MD Triglyceride [Mass/Vol] 105 mg/dL Normal <150 [facility] Comment on above: Order Comment: FASTI NG:UNKNOWN FASTING: UNKNOWN Performed By: #### 1 9491, 4210 #### [facility] [address], [address] [place] [address] Account Executive Trainee: Gopal Tolbert MD Vital Signs Date Time Vital Sign Value Performing Clinician Faci lity 03-27-2025 17:06-0400 Diastolic blood pressure 77 mm[Hg] Oleg Rosie DO Work Phone: [facility] 03-27-2025 17:06-0400 Heart rate 88 /min Oleg Rosie DO Work Phone: [facility] 03-27-2025 17:06-0400 Respiratory rate 16 /min Oleg Rosie DO Work Phone: [facility] 03-27-2025 17:06-0400 SaO2% (BldA) [Mass fraction] 97 % Oleg Rosie DO Work Phone: [facility] 03-27-2025 17:06-0400 Systolic blood pressure 135 mm[Hg] Oleg Rosie DO Work Phone: [facility] 03-27-2025 16:13-0400 Inhaled oxygen flow rate 3 L/min Oleg Rosie DO Work Phone: [facility] 03-27-2025 15:43-0400 Body temperature 98 [degF] Oleg Rosie DO Work Phone: [facility] 03-27-2025 10:35-0400 Body height 175.26 cm Oleg Rosie DO Work Phone: [facility] 03-27-2025 10:35-0400 Body weight 100.69 kg Oleg Rosie DO Work Phone: [facility] 12-01-2023 12:19-0400 Body height 175.26 cm [facility] 12-01-2023 12:19-0400 Body mass index (BMI) [Ratio] 31.7 kg/m2 [facility] 12-01-2023 12:19-0400 Body temperature 98.2 [degF] [facility] 12-01-2023 12:0400 Body weight 97.52 kg [facility] 12-01-2023 12:19-0400 Diastolic blood pressure 79 mm[Hg] [facility] 12-01-2023 12:19-0400 Heart rate 84 /min [facility] 12-01-2023 12:19-0400 Respiratory rate 18 /min [facility] 12-01-2023 12:19-0400 SaO2% (BldA) [Mass fraction] 97 % [facility] 12-01-2023 12:19-0400 Systolic blood pressure 120 mm[Hg] [facility] Encounters Encounter Date Encounter Type Care Provider Facility Start: 03-27-2025 End: 03-27-2025 ambulatory lOeg Velez Facility:[facility] Start: 03-27-2025 Non-patient / Non-visit Oleg langford [facility] Work Phone: Start: 06-12-2024 End: 06-12-2024 Bamboo leidy Teixeira MD Work Phone: [facility] Start: 06-12-2024 End: 06-12-2024 Bamboo flowsheet Pepito Teixeira MD Work Phone: [facility] Start: 06-12-2024 End: 06-12-2024 Office outpatient visit 25 minutes Pepito Teixeira MD Work Phone: [facility] Comment on above: Hypertensive nephrop athy (CMS/HCC) (Primary Dx); Tonic clonic epilepsy (CMS/HCC); Essential hypertension (CMS/HCC); Stage 2 chronic kidney disease Start: 06-12-2024 End: 06-12-2024 ambulatory PEPITO TEIXEIRA Not Available Start: 06-06-2024 End: 06-06-2024 Refill Pepito Teixeira MD Work Phone: [facility] Comment on above: Essential hypertensi on (CMS/HCC); Tonic clonic epilepsy (CMS/HCC) Start: 12-19-2023 End: 12-19-2023 ambulatory PEPITO TEIXEIRA Not Available Start: 12-12-2023 End: 12-12-2023 ambulatory PEPITO TEIXEIRA Not Available Start: 12-07-2023 End: 12-07-2023 ambulatory PEPITO TEIXEIRA Not Available Start: 12-01-2023 End: 12-01-2023 ambulatory [facility] Work Phone: Start: 12-01-2023 End: 12-01-2023 Patient encounter procedure [facility] Work Phone: Start: 12-14-2018 End: 12-14-2018 [facility] Facility: Procedures Date Procedure Procedure Detail Performing Clinician Start: 12-14-2018 Colonoscopy Pepito archer MD Work Phone: Plan of Treatment Date Care Activity Detail Author Start: 12-14-2028 Screening for malignant neoplasm of colon [facility] Start: 03-27-2025 [facility] Start: 03-27-2025 End: 03-27-2025 [facility] Start: 03-27-2025 [facility] Start: 03-27-2025 XR Humerus - right Views [facility] Start: 12-10-2024 End: 12-10-2024 Patient encounter procedure 12/10/2024 8:30 AM EDT Office Visit [facility] [address] [place] [address] Pepito Teixeira MD [address] [place] [address] (Fax) [facility] Start: 06-12-2024 End: 06-12-2024 Patient encounter procedure [facility] Comment on above: Arrived Start: 1965 Screening for malignant neoplasm of colon [facility] Patient Education Know your Meds [facility] Work Phone: Patient referral [facility] Work Phone: Immunizations Immunization Date Immunization Notes Care Provider Meng valentine 05-12-2024 influenza, seasonal, injectable Pepito Teixeira MD Work Phone: [facility] 05-12-2024 Moderna SARS-CoV-2 Booster Vaccination Pepito Teixeira MD Work Phone: [facility] 06-10-2023 influenza, injectabl e, quadrivalent, preservative free Pepito Teiexira MD Work Phone: [facility] 04-12-2022 Influenza, injectabl e, Madin Razia Canine Kidney, preservative free, quadrivalent Pepito Teixeira MD Work Phone: [facility] 04-12-2022 Moderna Bivalent Cohen ster Vaccination Pepito Teixeira MD Work Phone: [facility] 06-15-2021 zoster vaccine recombinant Pepito Teixeira MD Work Phone: [facility] 04-03-2021 zoster vaccine recombinant Pepito Teixeira MD Work Phone: [facility] 03-26-2021 influenza, injectabl e, quadrivalent, preservative free Pepito Teixeira MD Work Phone: [facility] 09-29-2020 Pfizer Purple Cap SARS-CoV-2 Vaccination Pepito Teixeira MD Work Phone: [facility] 09-07-2020 Pfizer Purple Cap SARS-CoV-2 Vaccination Pepito Teixeira MD Work Phone: [facility] 06-13-2018 influenza, injectabl e, quadrivalent, preservative free Pepito Teixeira MD Work Phone: [facility] 04-17-2017 influenza, high dose seasonal, preservative-free Pepito Teixeira MD Work Phone: [facility] 04-17-2017 influenza, injectabl e, quadrivalent, preservative free Pepito Teixeira MD Work Phone: [facility] 04-19-2016 influenza, injectabl e, quadrivalent, preservative free Pepito Teixeira MD Work Phone: [facility] 03-16-2015 influenza, injectabl e, quadrivalent, preservative free Pepito Teixeira MD Work Phone: [facility] Healthcare Payers Date Payer Category Payer Self-pay 2020 Private Health Insurance [facility] [id number] 2020 Unknown [id number] 1965 Unknown [id number] 1965 Unknown [id number] 1965 Unknown [id number] 1966 Unknown [id number] 1965 Unknown [id number] 1959 Unknown [id number] Unknown [id number] Social History Date Type Detail Facility Tobacco smoking stat [facility] Unknown if ever smoked [facility] Work Phone: Start: 1965 Sex Assigned At Male F [facility] Start: 02-08-2023 End: 03-27-2025 Tobacco smoking status NHIS Never smoked tobacco [facility] Start: 02-08-2023 Tobacco use and exposure Smokeless tobacco non-user [facility] Start: 12-19-2023 Alcoholic beverage intake Ex-drinker (finding) [facility] Start: 12-19-2023 History of Social function [facility] Start: 12-19-2023 Tobacco use panel [facility] Start: 02-07-2023 Education 21 [facility] Start: 02-07-2023 Alcohol Comment Caffeine intak e: 3-4 cups per day [facility] Start: 1965 Sex assigned at Not on file N [facility] Sex Male (finding) [facility] Evaluation note 03-27-2025 Note Date & Type Note Facility 03-27-2025 Evaluation note Diagnosis Onset Date Resolution Fracture of humeral shaft, closed acute March 27 9:34am [facility] Work Phone: Hospital Discharge instructions 10-24-2024 Note Date & Type Note Facility 10-24-2024 Hospital Discharg e instructions Additional Instructions Orthopedic surgery discharge instructions Your operative arm should remain in your postoperative dressing for 72 hours after surgery. You may remove after this amount of time and then leave open to air or cover however you like. You may move your elbow, hand and fingers as tolerated but do not lift, push or pull anything over 1 pound. Icing for the next week can help with swelling. You may ice the surgical area for 20 minutes on and 20 minutes off for about 3 hours a day. Avoid any heat. You should take your medications as prescribed. You will be given a pain medication and should take this as it states on the bottle. You may take ibuprofen or Tylenol [id number] if needed. You should take calcium 800 mg and vitamin D 1200 units daily. Take vitamin C 500 mg daily. You should follow-up with Dr. Velez in 3 weeks, call office for appointment if you have not already scheduled one. Dr. [facility] [address] [place], [place] [id number] [facility] Work Phone: History of Present illness Narrative 06-12-2024 Pepito Teixeira MD - 06/12/2024 9:00 AM EST Note Date & Type Note Facility 06-12-2024 History of Presen t illness Narrative Images from the original note were not included. Patient ID: Jesus Riojas is a 59 y.o. male who presents for: No Recent seizures, it has been some time as in several years since he has had of seizure. No other neurologic symptoms including headache or visual disturbance. No tremors. No localized symptoms. He is also here for re-evaluation of his hypertension. No HTN symptoms. Pickleball for exercise. Sounds like he is utilizing low-salt diet. Denies any chest pain, palpitations, shortness of breath. Trace peripheral edema by the end of day that resolves in the morning Objective The patient is pleasant and in no acute distress. The neck is supple and trachea is midline. No masses are appreciated. The heart is regular rate and rhythm without S3, S4. 1-2 / 6 systolic murmur. The patient has normal respiratory pattern. The breath sounds are symmetrical without evidence of rhonchi or rales. No wheezing. The skin is warm and dry. The lower extremities have trace edema. The patient has good eye contact and speech is clear. Appropriate affect. Visit Vitals Smoking Status Never Labs 06/10/24 No Known Allergies No current outpatient medications on file prior to visit. No current facility-administered medications on file prior to visit. 1. Tonic clonic epilepsy (CMS/HCC) Chronic problem, stable, previous therapeutic blood level. In prescribing a renewal to their current medication, consideration of the following encompasses moderate decision making; the current prescriptions and supplements, the current allergies and medication intolerances, current medical conditions, and potential drug interactions. Any changes to risks, benefits, and reason for renewing their current medication due to the above were discussed. The patient was given a chance to ask questions today and all questions were answered. The patient is to contact us if any other questions arise or if any problems occur. (Utilizing the original 1994/1996 guidelines or the 2020 office/outpatient code guidelines for selecting the level of E/M service, In both sets of guidelines, prescription drug management appears in the moderate medical decision making (MDM) row. Neither the original guidelines nor the new guidelines state that a new prescription or change is needed in order to credit prescription drug management) - levETIRAcetam (Keppra) 500 MG tablet; Take 1 tablet (500 mg) by mouth in the morning and 1 tablet (500 mg) before bedtime. Dispense: 180 tablet; Refill: 1 2. Essential hypertension (CMS/HCC) Chronic problem, stable, to goal His LDL cholesterol is just above the target of 134 patients with hypertension. He really wants to focus on lifestyle changes rather than more medication. With his good HDL this is not unreasonable. - losartan (Cozaar) 100 MG tablet; Take 1 tablet (100 mg) by mouth Daily Dispense: 90 tablet; Refill: 1 3. Hypertensive nephropathy (CMS/HCC) (Primary) Chronic problem, unstable, demonstrating progression of end organ damage from their current state of health. I stressed the importance of keeping blood pressure and blood sugar to goal, staying well hydrated, avoiding NSAIDs, and aerobic exercises as tolerated. Continue to monitor longitudinally. 4. Stage 2 chronic kidney disease New , Chronic problem, unstable, progressing, defining the end organ damage of the nephropathy. I stressed the importance of keeping blood pressure and blood sugar to goal, staying well hydrated, and aerobic exercises as tolerated. Continue to monitor longitudinally. documented in this encounter [facility] Evaluation note Note Date & Type Note Facility Evaluation note Diagnosis Onset Date Sinus congestion acute [facility] Work Phone: Evaluation note Note Date & Type Note Facility Evaluation note Diagnosis Essential hypertension (CMS/HCC) Unspecified essential hypertension Tonic clonic epilepsy (CMS/HCC) documented in this encounter [facility] Evaluation note Note Date & Type Note Facility Evaluation note Diagnosis Hypertensive nephropathy (CMS/HCC)- Primary Unspecified hypertensive kidney disease with chronic kidney disease stage I through stage IV, or unspecified Tonic clonic epilepsy (CMS/HCC) Essential hypertension (CMS/HCC) Unspecified essential hypertension Stage 2 chronic kidney disease documented in this encounter [facility] Reason for referral (narrative) Note Date & Type Note Facility Reason for referral (narrative) No reason for referral information available [facility] Work Phone: Summary Purpose Family History No Family History Records Found Relationship Condition Age at Onset Recorded Date/T bruno Not Specified No pertinent family history Unknown Advance Directives No Advanced Directives Records Found Advance Directive Response Recorded Date/ Time Advance Directives No November 30 12:04pm Procedure Findings Note OPERATIVE NOTE OPERATION KAY E: 12/14/2018 PREOPERATIVE DIAGNOSIS: Screening colonoscopy. POSTOPERATIVE DIAGNOSIS: Diverticulosis coli. PROCEDURE NAME: Colonoscopy to cecum. SURGEON: Devi Carter D.O. ANESTHESIA: IV sedation. ESTIMATED BLOOD LOSS: None. COMPLICATIONS: None. DISPOSITION: To Recovery Room in stable condition. PROCEDURE: The patient was brought to the endoscopy suite where monitoring devices were attached. He was sedated, prepped and draped in the usual fashion for this procedure. A digital rectal examination demonstrated no mucosal abnormalities. An Olympus colonoscope was inserted into the rectal vault and advanced under direct visualization through to the cecum. It was then carefully withdrawn. The cecum, ascending, transverse, descending and sigmoid colons were unremarkable, save for diverticulosis coli more pronounced in the left colon than the right. In the rectal vault, the scope was retroverted. No additional mucosal abnormalities were seen. The scope was wit (more content not included)... Chief Complaint and Reason for Visit Chief Complaint Congestion Reason for Visit Sinus congestion Chief Complaint Admit Date Fracture March 27, 2025 9: 34am Reason for Visit Admit Date Fracture of humeral shaft, closed Octobe r 2024 9:34am Additional Source Comments (unrecognized sect ion and content) No Status Records FoundNo Status Records FoundNo Status Records FoundNo Status Records Found INFORMATION SOURCE (unrecogn ized section and content) DATE CREATED AUTHOR 02/16/2019 [facility] DATE CREATED AUTHOR AUTHOR'S ORGANIZ ATION 06/13/2024 [facility] DATE CREATED AUTHOR AUTHOR'S ORGANIZ ATION 06/15/2024 [facility] EPIC DATE CREATED AUTHOR AUTHOR'S ORGANIZ ATION 04/05/2025 [facility] Care Teams (unrecognized sec tion and content) Team Status: Active Member Role Status Dates NON STAFF Primary Care Provider Active Team Status: Inactive Member Role Status Dates [place] APRN Attending Provider Active S tart: December 01, 2023 End: December 01, 2023 NON STAFF Primary Care Provider Active Start: December 01, 2023 End: December 01, 2023 Linux Dev[employer] Engineer Relationship Specialty Start Date End Date Pepito Teixeira MD [address] [place] [address] (Fax) PCP - General Family Medicine 11/01/22 [employer] Dev[employer] Engineer Relationship Specialty Start Date End Date Pepito Teixeira MD [address] [place] [address] (Fax) PCP - General Family Medicine 11/01/22 [employer] Dev[employer] Engineer Relationship Specialty Start Date End Date Pepito Teixeira MD [address] [place] [address] PCP - General Family Medicine 11/01/22 Team Status: Active Member Role Status Dates Pepito Teixeira MD Primary Care Provider Active Team Status: Active Member Role Status Dates Oleg Velez DO Attending Provider Active S tart: March 27, 2025 Oleg Velez DO Other Provider Active Start : March 27, 2025 Pepito Teixeira MD Primary Care Provider Active Start: March 27, 2025 Goals (unrecognized section and content) Goals may be documented in a n alternate sectionGoals may be documented in an alternate section Reason for Visit (unrecogniz ed section and content) Reason Comments Med Refill FOR RECORDS PERTAINING TO PATIENTS WHO ARE OR HAVE BEEN ENROLLED IN A CHEMICAL DEPENDENCY/SUBSTANCEABUSE PROGRAM, SOME INFORMATION MAY BE OMITTED. This clinical summary was aggregated from multiple sources. Caution should be exercised in using it in the provision of clinical care. This summary normalizes information from multiple sources, and as a consequence, information in this document may materially change the coding, format and clinical context of patient data. In addition, data may be omitted in some cases. CLINICAL DECISIONS SHOULD BE BASED ON THE PRIMARY CLINICAL RECORDS. [employer] provides no warranty or guarantee of the accuracy or completeness of information in this document.
== END 2025-04-14 08:04 | disposition home or self-care (01) ==
LOC: RAD 08:03
PROVIDERS: PCP Family Medicine; Visit Provider Orthopaedic Surgery Orthopaedic Trauma
DX: S42.391D Other fracture of shaft of right humerus, subsequent encounter for fracture with routine healing (principal)
CPT/HCPCS: 73060

== ENCOUNTER 2025-05-12 09:36 | Outpatient (OUT) | payer OTHER, SELFPAY ==
--- NOTE | 2025-05-12 | XR_ITS ---
The [address] [address] Patient Name: KELSEY STRAUSS MRN: [id number] date: 1965 Sex: M Assigned Patient Location: [facility] Current Patient Location: [facility] Accession/Order Number: [id number] Exam Date: 05/12/2025 10:40 Report Date: 05/12/2025 11:44 At the request of: NATASHA PACHECO DO Procedure: XR humerus RT CLINICAL DATA: Chronic right knee pain. Follow-up right humerus fracture. RIGHT KNEE - 4 views COMPARISON: None AP, lateral, tunnel and patellar views were obtained. There is osteopenia. There is no acute fracture or dislocation. There is minimal medial subluxation of the femur with respect to the tibia and moderate to severe narrowing of the medial tibiofemoral joint compartment. No significant patellar subluxation is seen. There are small marginal spurs. A small amount of joint fluid is noted. No soft tissue swelling is identified. XR/XR humerus RT IMPRESSION: OSTEOPENIA AND DEGENERATIVE CHANGES, GREATEST MEDIALLY. RIGHT HUMERUS - 2 views COMPARISON: 04/14/2025 AP and lateral views were obtained. There is osteopenia. There is a plate from the proximal shaft to the humerus down to the distal metaphysis along with multiple screws. The underlying comminuted fracture is in appropriate alignment and unchanged from the comparison. There is a small amount of callus formation. No new fracture or dislocation is seen. The skin massiel have been removed. IMPRESSION: STABLE HUMERAL SHAFT FRACTURE, STATUS POST INTERNAL FIXATION. Impression dictated by: Linette Barnes M.D. 05/12/2025 11:44 AM Dictation Location: [place] [address] Electronically authenticated by: [id number] Y Date: 05/12/2025 11:44
--- NOTE | 2025-05-12 | XR_ITS ---
The [address] [address] Patient Name: KELSEY STRAUSS MRN: [id number] date: 1965 Sex: M Assigned Patient Location: [facility] Current Patient Location: [facility] Accession/Order Number: [id number] Exam Date: 05/12/2025 10:40 Report Date: 05/12/2025 11:44 At the request of: NATASHA PACHECO DO Procedure: XR humerus RT CLINICAL DATA: Chronic right knee pain. Follow-up right humerus fracture. RIGHT KNEE - 4 views COMPARISON: None AP, lateral, tunnel and patellar views were obtained. There is osteopenia. There is no acute fracture or dislocation. There is minimal medial subluxation of the femur with respect to the tibia and moderate to severe narrowing of the medial tibiofemoral joint compartment. No significant patellar subluxation is seen. There are small marginal spurs. A small amount of joint fluid is noted. No soft tissue swelling is identified. XR/XR knee RT 4V IMPRESSION: OSTEOPENIA AND DEGENERATIVE CHANGES, GREATEST MEDIALLY. RIGHT HUMERUS - 2 views COMPARISON: 04/14/2025 AP and lateral views were obtained. There is osteopenia. There is a plate from the proximal shaft to the humerus down to the distal metaphysis along with multiple screws. The underlying comminuted fracture is in appropriate alignment and unchanged from the comparison. There is a small amount of callus formation. No new fracture or dislocation is seen. The skin massiel have been removed. IMPRESSION: STABLE HUMERAL SHAFT FRACTURE, STATUS POST INTERNAL FIXATION. Impression dictated by: Linette Barnes M.D. 05/12/2025 11:44 AM Dictation Location: [place] [address] Electronically authenticated by: [id number] Y Date: 05/12/2025 11:44
== END 2025-05-12 09:37 | disposition home or self-care (01) ==
LOC: RAD 09:36
PROVIDERS: PCP Family Medicine; Visit Provider Orthopaedic Surgery Orthopaedic Trauma
DX: S42.391D Other fracture of shaft of right humerus, subsequent encounter for fracture with routine healing (principal); M25.561 Pain in right knee; M85.88 Other specified disorders of bone density and structure, other site
CPT/HCPCS: 73060; 73564